=== PATIENT | male | born 1960 | race African-American/Black ===

== ENCOUNTER 2024-07-28 07:55 | Inpatient (IN) | payer OTHER ==
[~2024-07-28] VITALS: Ht 183.4 cm; Wt 87.1 kg
[2024-07-28 08:43] LABS: BASOPHILS % 1.3 % (0.0-2.0); EOSINOPHILS % 2.8 % (0.0-5.0); HEMATOCRIT. 27.7 % (42.0-52.0); HEMOGLOBIN. 9.4 g/dL (14.0-18.0); LYMPHOCYTES % 25.5 % (20.0-50.0); MEAN CORPUSCULAR HEMOGLOBIN 32.3 pg (28.0-32.0); MEAN CORPUSCULAR HGB CONC 34.1 g/dL (31.0-37.0); MEAN CORPUSCULAR VOLUME 94.6 fL (80.0-94.0); MEAN PLATELET VOLUME 9.1 fl (7.4-10.4); MONOCYTES % 5.5 % (2.0-8.0); NEUTROPHILS % 64.9 % (40.0-76.0); PLATELET 190 x1000/uL (130-400); RED BLOOD CELL COUNT 2.93 mill/uL (4.7-6.1); RED CELL DISTRIBUTION WIDTH 14.7 % (11.6-14.6); WHITE BLOOD COUNT 5.2 x1000/uL (4.5-11.0)
[2024-07-28 08:54] LABS: PROTHROMBIN TIME 10.9 sec (9.6-11.0)
[2024-07-28 09:09] LABS: CHLORIDE 103 mEq/L (98-107); POTASSIUM 4.6 mEq/L (3.5-5.1); SODIUM 135 mEq/L (136-145)
[2024-07-28 09:10] LABS: CALCIUM 9.1 mg/dL (8.7-10.4); CARBON DIOXIDE 24 mEq/L (21-32)
[2024-07-28 09:15] LABS: CREATININE 4.3 mg/dL (0.6-1.3); GLUCOSE 181 mg/dL (70-105); UREA NITROGEN BLOOD 77 mg/dL (9-23)
[2024-07-28 09:16] LABS: ETHANOL BLOOD < 10 mg/dL (<10); TROPONIN I HIGH SENSITIVITY 30 ng/L (3.0-53)
[2024-07-28 09:56] LABS: CLARITY URINE CLEAR (CLEAR); COLOR URINE YELLOW (YELLOW); GLUCOSE URINE 2+ (NEGATIVE); KETONES URINE NEGATIVE (NEGATIVE); LEUKOCYTE ESTERASE URINE NEGATIVE (NEGATIVE); NITRITE URINE NEGATIVE (NEGATIVE); OCCULT BLOOD URINE NEGATIVE (NEGATIVE); PH URINE 5.5 (4.5-8.0); PROTEIN URINE 3+ (NEGATIVE); SPECIFIC GRAVITY URINE 1.012 (1.005-1.030); UROBILINOGEN URINE 0.2 E.U./dL (0.2-1.0)
[2024-07-28 10:21] LABS: *AMPHETAMINES SCREEN URINE NEGATIVE (NEGATIVE)
[2024-07-28 10:22] LABS: *BARBITURATES SCREEN URINE NEGATIVE (NEGATIVE); *BENZODIAZEPINES SCREEN URINE NEGATIVE (NEGATIVE); *COCAINE SCREEN URINE NEGATIVE (NEGATIVE); CANNABINOID URINE SCREEN NEGATIVE (NEGATIVE); ECSTASY MDMA SCREEN URINE NEGATIVE (NEGATIVE); METHADONE URINE SCREEN NEGATIVE (NEGATIVE); OPIATES URINE SCREEN NEGATIVE (NEGATIVE); PHENCYCLIDINE URINE SCREEN NEGATIVE (NEGATIVE)
[2024-07-28 10:23] LABS: SQUAMOUS EPITHELIAL CELL URINE FEW /lpf (RARE/1+)
[2024-07-28 10:24] LABS: BACTERIA URINE NONE SEEN; RBC URINE 0-2 /hpf (0-2); WBC URINE 0-2 /hpf (0-2)
[2024-07-28 12:00] VITALS: BP 188/188; PULSE 50; RESP 18; TEMP 36.4; O2SAT 98
[2024-07-28] MEDS ORDERED: ONDANSETRON HCL 4MG/2ML INJ IV PRN (12:15)
[2024-07-28] MEDS ORDERED: ACETAMINOPHEN 325MG TABLET PO PRN ×2 (12:15)
[2024-07-28] MEDS ORDERED: IPRATROPIUM/ALBUTEROL 0.5-3(2.5)MG/3ML NEB HHN PRN (12:15)
[2024-07-28] MEDS ORDERED: DOCUSATE SODIUM 100MG CAPSULE PO PRN (12:15)
[2024-07-28] MEDS ORDERED: MAGNESIUM/ALUMINUM HYDROXIDE/SIMETHICONE 30ML UDC PO PRN (12:15)
[2024-07-28] MEDS ORDERED: GUAIFENESIN 200MG/10ML SUGAR FREE UDC PO PRN (12:15)
[2024-07-28] MEDS ORDERED: METO-385 PO (12:26)
[2024-07-28] MEDS ORDERED: GLIP10TA17 PO (12:26)
[2024-07-28] MEDS ORDERED: HYDR100T31 PO (12:26)
[2024-07-28 12:50] VITALS: BP 188/89; PULSE 50; RESP 18; TEMP 36.4; O2SAT 98
[2024-07-28 12:51] LABS: TRIGLYCERIDE 105 mg/dL (0-150)
[2024-07-28 12:52] LABS: LDL CHOLESTEROL 91 mg/dL (5-100)
[2024-07-28 12:53] LABS: ALANINE AMINOTRANSFERASE 17 IU/L (10-49); ALBUMIN 3.9 g/dL (3.2-4.8); ASPARTATE AMINOTRANSFERASE 29 IU/L (<34); BILIRUBIN DIRECT < 0.1 mg/dL (<=3.0); BILIRUBIN TOTAL 0.3 mg/dL (0.1-1.0); CHOLESTEROL 127 mg/dL (<200); HDL CHOLESTEROL 35 mg/dL (>55)
[2024-07-28 12:54] LABS: T4 FREE 1.31 ng/dL (0.89-1.76)
[2024-07-28 12:55] LABS: THYROID STIMULATING HORMONE 1.52 uIU/mL (0.55-4.78)
[2024-07-28 13:00] VITALS: BP 188/89; PULSE 50; RESP 18; TEMP 36.5
[2024-07-28] MEDS: ASPIRIN 325MG EC TABLET PO SCH (13:00)
[2024-07-28] MEDS: HYDRALAZINE 20MG/ML VIAL IV PRN (13:16)
[2024-07-28] MEDS: CLOPIDOGREL 75MG TABLET PO SCH (14:03)
[2024-07-28] MEDS ORDERED: LOSA100T33 PO (15:21)
[2024-07-28] MEDS ORDERED: TORS20TA4 PO (15:21)
[2024-07-28] MEDS ORDERED: ISOS30TA91 PO (15:21)
[2024-07-28] MEDS ORDERED: METF-416 PO (15:21)
[2024-07-28] MEDS ORDERED: NIFE-72 PO (15:21)
[2024-07-28] MEDS ORDERED: ATOR10TA69 PO (15:21)
[2024-07-28] MEDS ORDERED: DAPA5TAB PO (15:21)
[2024-07-28] MEDS: IOHEXOL-350 100 ML BOTTLE ONE (15:29)
[2024-07-28 16:00] VITALS: BP 189/94; PULSE 55; RESP 18; TEMP 36.3; O2SAT 18
[2024-07-28] MEDS: CLONIDINE 0.1MG TABLET PO PRN (16:34)
[2024-07-28] MEDS ORDERED: CLON0.2T MT (16:42)
[2024-07-28] MEDS ORDERED: METF-414 MT (16:43)
[2024-07-28] MEDS ORDERED: ASPI-1497 PO (16:44)
[2024-07-28 20:00] VITALS: BP 189/81; PULSE 82; RESP 20; TEMP 36; O2SAT 97
[2024-07-28] MEDS: ATORVASTATIN CALCIUM 40MG TABLET PO SCH (21:14)
[2024-07-28] MEDS: HYDRALAZINE HCL 100MG TABLET PO SCH (21:14)
[2024-07-28 22:15] VITALS: BP 175/78; PULSE 62; RESP 18; TEMP 36.4; O2SAT 97
[2024-07-28] MEDS ORDERED: DEXTROSE 50% WATER 50ML SYRINGE IV PRN (22:30)
[2024-07-28] MEDS: BLOOD SUGAR DIAGNOSTIC STRIP TEST SCH (22:51)
[2024-07-28] MEDS: INSULIN LISPRO 100 UNITS/ML SUBCUT SCH (22:58)
[2024-07-29] VITALS: BP 177/66; PULSE 59; RESP 18; TEMP 36.5; O2SAT 96
[2024-07-29 04:00] VITALS: BP 163/66; PULSE 58; RESP 18; TEMP 36.2; O2SAT 99
[2024-07-29 06:33] LABS: CALCIUM 8.8 mg/dL (8.7-10.4)
[2024-07-29 06:34] LABS: BASOPHILS % 0.9 % (0.0-2.0); HEMATOCRIT. 29.8 % (42.0-52.0); HEMOGLOBIN. 10.1 g/dL (14.0-18.0); MEAN CORPUSCULAR HEMOGLOBIN 31.6 pg (28.0-32.0); MEAN CORPUSCULAR HGB CONC 33.7 g/dL (31.0-37.0); MEAN CORPUSCULAR VOLUME 93.8 fL (80.0-94.0); MEAN PLATELET VOLUME 9.4 fl (7.4-10.4); MONOCYTES % 6.5 % (2.0-8.0); NEUTROPHILS % 67.6 % (40.0-76.0); PLATELET 205 x1000/uL (130-400); RED BLOOD CELL COUNT 3.18 mill/uL (4.7-6.1); RED CELL DISTRIBUTION WIDTH 14.5 % (11.6-14.6)
[2024-07-29 08:00] VITALS: BP 193/84; PULSE 62; RESP 16; TEMP 36.9; O2SAT 97
[2024-07-29] MEDS: METOPROLOL SUCCINATE 50MG ER TABLET PO SCH (08:36)
[2024-07-29] MEDS: NIFEDIPINE XL 60MG TAB PO SCH (08:37)
[2024-07-29] MEDS: LOSARTAN 50 MG TABLET PO SCH ×2 (08:37→15:43)
[2024-07-29] MEDS: ASPIRIN 81MG EC TABLET PO SCH (09:00)
[2024-07-29] MEDS ORDERED: METFORMIN HCL PO SCH (09:00)
[2024-07-29 12:00] VITALS: BP 168/73; PULSE 53; PULSE 63; RESP 17; TEMP 36.5; O2SAT 98
[2024-07-29] MEDS: HYDROCHLOROTHIAZIDE 12.5MG CAPSULE PO SCH (15:42)
[2024-07-29] MEDS: ISOSORBIDE MONONITRATE 30MG TABLET SR 24HR PO SCH (15:43)
[2024-07-29 16:00] VITALS: BP 182/73; PULSE 59; RESP 16; TEMP 36.7; O2SAT 100
[2024-07-29 20:00] VITALS: BP 175/79; PULSE 61; RESP 18; TEMP 36.6; O2SAT 98
[2024-07-29] MEDS: CLONIDINE 0.2MG TABLET PO SCH (21:23)
[2024-07-30] VITALS: BP 127/78; PULSE 54; RESP 19; TEMP 36.8; O2SAT 98
[2024-07-30 04:03] VITALS: BP 158/57; PULSE 50; RESP 18; TEMP 36.3; O2SAT 97
[2024-07-30 08:00] VITALS: BP 167/72; PULSE 103; RESP 17; TEMP 36.3; O2SAT 98
[2024-07-30] MEDS ORDERED: METOPROLOL SUCCINATE 50MG ER TABLET PO SCH (09:00)
[2024-07-30] MEDS: HYDROCHLOROTHIAZIDE 25MG TABLET PO SCH (09:00)
[2024-07-30] MEDS: LOSARTAN 100 MG TABLET PO SCH (09:30)
[2024-07-30] MEDS: NIFEDIPINE XL 90MG TAB PO SCH (09:32)
[2024-07-30] MEDS: METOPROLOL TARTRATE 50MG TABLET PO SCH (09:33)
[2024-07-30] MEDS: ENOXAPARIN 30MG/0.3ML SYR SUBCUT SCH (09:38)
[2024-07-30 10:17] LABS: CHLORIDE 102 mEq/L (98-107); POTASSIUM 4.4 mEq/L (3.5-5.1); SODIUM 137 mEq/L (136-145)
[2024-07-30 10:18] LABS: CALCIUM 8.7 mg/dL (8.7-10.4); CARBON DIOXIDE 27 mEq/L (21-32)
[2024-07-30 10:23] LABS: CREATININE 4.4 mg/dL (0.6-1.3); GLUCOSE 183 mg/dL (70-105); TROPONIN I HIGH SENSITIVITY 50 ng/L (3.0-53); UREA NITROGEN BLOOD 78 mg/dL (9-23)
[2024-07-30 10:25] LABS: PHOSPHORUS 4.9 mg/dL (2.5-4.9)
[2024-07-30 12:00] VITALS: BP 142/70; PULSE 94; RESP 17; TEMP 36.3; O2SAT 96
[2024-07-30] MEDS ORDERED: TORS20TA4 PO (15:14)
[2024-07-30] MEDS ORDERED: ASPI-1497 PO (15:14)
[2024-07-30] MEDS ORDERED: ASPI-1406 PO (15:14)
[2024-07-30] MEDS ORDERED: LOSA100T33 PO ×2 (15:14→15:15)
[2024-07-30] MEDS ORDERED: CLOP-31 PO (15:15)
[2024-07-30] MEDS ORDERED: HYDR100T31 PO (15:15)
[2024-07-30] MEDS ORDERED: ISOS30TA91 PO (15:15)
[2024-07-30] MEDS ORDERED: METO-539 PO (15:15)
[2024-07-30] MEDS ORDERED: LIP40 PO (15:15)
[2024-07-30] MEDS ORDERED: NIFE90TA60 PO (15:15)
[2024-07-30 15:46] VITALS: BP 142/70; PULSE 94; TEMP 97.4; O2SAT 96
== END 2024-07-30 15:55 | disposition home or self-care (01) | DRG 65 ==
LOC: EDSEX 07:55 → ER 07:55 → 6WST 11:29 → ENRESERV 11:39 → 6WST 13:10
PROVIDERS: ADMIT Hospitalist; ATTEND Hospitalist
DX: I63.81 Other cerebral infarction due to occlusion or stenosis of small artery (principal); I16.1 Hypertensive emergency; N18.4 Chronic kidney disease, stage 4 (severe); I69.351 Hemiplegia and hemiparesis following cerebral infarction affecting right dominant side; E11.22 Type 2 diabetes mellitus with diabetic chronic kidney disease; M47.812 Spondylosis without myelopathy or radiculopathy, cervical region; I1A.0 Resistant hypertension; I12.9 Hypertensive chronic kidney disease with stage 1 through stage 4 chronic kidney disease, or unspecified chronic kidney disease; Z96.641 Presence of right artificial hip joint; Z96.653 Presence of artificial knee joint, bilateral; E78.5 Hyperlipidemia, unspecified; D63.8 Anemia in other chronic diseases classified elsewhere; Z79.899 Other long term (current) drug therapy; Z79.02 Long term (current) use of antithrombotics/antiplatelets; Z79.4 Long term (current) use of insulin; Z79.82 Long term (current) use of aspirin; Z79.84 Long term (current) use of oral hypoglycemic drugs; Z82.3 Family history of stroke; Z82.49 Family history of ischemic heart disease and other diseases of the circulatory system; Z83.3 Family history of diabetes mellitus
CPT/HCPCS: 36415; 70496; 70498; 70551; 71045; 80048; 80061; 80076; 80305; 80320; 81003; 82962; 83036; 83735; 84100; 84439; 84443; 84484; 85025; 93005; 93306; 97161; 97166; 97530; 97535; 99291; J0360; J1650; J1815; Q9967; G0480